=== PATIENT | male | born 1975 | race Caucasian/White ===

== ENCOUNTER → 2022-01-17 | Outpatient (CLI) | payer OTHER | LOC: MHCPAIN 10:33 | DX: M54.50 Low back pain, unspecified (principal); M51.36 Other intervertebral disc degeneration, lumbar region; M54.2 Cervicalgia; M62.81 Muscle weakness (generalized); M79.2 Neuralgia and neuritis, unspecified; M25.60 Stiffness of unspecified joint, not elsewhere classified | CPT/HCPCS: G0463 ==

== ENCOUNTER → 2022-05-03 | Outpatient (CLI) | payer OTHER | LOC: MHCPAIN 09:52 | DX: M79.2 Neuralgia and neuritis, unspecified (principal); M54.2 Cervicalgia; M25.60 Stiffness of unspecified joint, not elsewhere classified; M54.50 Low back pain, unspecified; M53.3 Sacrococcygeal disorders, not elsewhere classified; M51.36 Other intervertebral disc degeneration, lumbar region | CPT/HCPCS: G0463 ==